=== PATIENT | male | born 1935 | race Caucasian/White ===

== ENCOUNTER 2021-01-12 16:13 | Emergency (ER) | payer OTHER, SELFPAY ==
--- NOTE | 2021-01-12 16:47 | XRR_ITS ---
PROCEDURE INFORMATION: Exam: XR Chest Exam date and time: 01/12/2021 4:47 PM Age: 85 years old Clinical indication: Cough; Additional info: Covid TECHNIQUE: Imaging protocol: XR of the chest. Views: 1 view. Total images: 1 COMPARISON: No relevant prior studies available. FINDINGS: Lungs: No visible active interstitial or alveolar airspace disease. Pleural spaces: Unremarkable. No pleural effusion. No pneumothorax. Heart/Mediastinum: Cardiac structures and configuration with arteriosclerosis. 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 Bones/joints: Mild scoliotic curvature. XR/XR chest 1V portable [id number] IMPRESSION: Nonacute.
[2021-01-12 16:48] VITALS: BMI 23.5
--- NOTE | 2021-01-12 18:51 | ED_ITS ---
HPI - Weakness General: Chief complaint: Weakness Stated complaint: COVID(+)/SENT BY [facility],FATIGUED,GEN MALAISE Time Seen by Provider: 01/12/21 18:47 History of Present Illness: HPI Narrative: Patient comes in from [facility] for concerns of a positive Covid test and feelings of fatigue and general malaise. Patient appears mildly unwell but not toxic. Patient had a positive Covid test through [facility].. Patient reports symptoms for for days. Complaint: generalized weakness Review of Systems General: Reports: 10 or more systems reviewed and unremarkable except in HPI and below Const: Reports: malaise Physical Exam Const: COMMON NORMALS: no acute distress and patient oriented x3 GENERAL APPEARANCE: cooperative HENMT: COMMON NORMALS: normocephalic, TM's normal bilaterally and Normal external nose present HEAD & SCALP: normal to inspection and normocephalic NOSE: Normal external nose present TYMPANIC MEMBRANE: TM's normal bilaterally MOUTH: Normal oral and palatal mucosa present THROAT: posterior oropharynx normal Eye: GENERAL EYE: appearance normal, both eyes and all related structures Neck/C-Spine: COMMON NORMALS: full ROM Lymph: LYMPHATIC: no lymphadenopathy noted Chest: COMMONS NORMALS: normal inspection of the chest Resp: COMMON NORMALS: normal respiratory effort EFFORT & INSPECTION: Yes able to speak in complete sentences Cardio: COMMON NORMALS: regular rate and regular rhythm RATE: regular rate RHYTHM: regular rhythm GI: COMMON NORMALS: non-tender : COMMON NORMALS: Yes no CVA tenderness BLADDER/KIDNEY EXAM: Yes no CVA tenderness Back/Pelvis: COMMON NORMALS: no CVA tenderness and thoracic and lumbar spine normal to inspection Extremity: COMMON NORMALS: normal to inspection Neuro: COMMON NORMALS: patient oriented x3 and moves all extremities Psych: COMMON NORMALS: mental status grossly normal and cooperative Skin: COMMON NORMALS: no rashes or lesions noted GENERAL SKIN EXAM: no rashes or lesions noted MDM - Weakness MDM Narrative: Medical decision making narrative: Patient came in today expecting to get monoclonal antibody treatment due to a positive test through the [facility]. I explained to patient at this time we did not have the ability to infuse through the emergency department due to lack of space. I reviewed the monoclonal antibody with the patient he is agreeable for us to set this up as outpatient infusion therapy. Patient reports minimal symptoms. Patient just reports feeling tired. Chest x-ray done today was normal. Vital signs were normal. I will place an order for case management to assist with monoclonal antibody infusion. Order was written out and a copy to case management file. Prescription was written out and placed for chart. Discharge Plan Discharge Patient Disposition: Home Clinical Impression: COVID-19 Condition: Stable Discharge Orders: Discharge ED (Routine); Ordered 01/12/21 Ordered By: Jhony Jones Referrals: Marizol Mcelroy MD [Primary Care Provider] - Discharge Diet: Usual diet Discharge Activity: Increase activity as tolerated Patient Instructions: Viral Syndrome (ED), Opioid Safety Activity Restrictions/Additional Instructions: Home and rest. Drink plenty of fluids. Use acetaminophen or ibuprofen as needed for aches and pains and fever. It is important to stay well-hydrated. Our case management will contact you in regards for the infusion treatment with the monoclonal antibodies within the next 2 to 3 days. Coding Level of Care Code ED Medical Sales Consultant for Dieudonne Fwsamara Exam Comprehensive
[2021-01-12 20:05] VITALS: BP 130/76; PULSE 80; RESP 18; TEMP 36.8; O2SAT 98
--- NOTE | 2021-01-15 15:21 | DCPLANNER ---
manager air had message to schedule the BAM infusion for patient. manager air faxed order for BAM to centralized scheduling. Centralized scheduling will call patient to set up the infusion.
== END 2021-01-12 20:07 | disposition home or self-care (01) ==
PROVIDERS: Emergency Provider Nurse Practitioner Family; PCP Family Medicine
DX: U07.1 COVID-19 (principal)
CPT/HCPCS: 71045; 99282

== ENCOUNTER 2021-01-17 05:42 | Outpatient (CLI) | payer OTHER, SELFPAY ==
[2021-01-17 06:01] VITALS: BP 154/78; PULSE 68; RESP 16; TEMP 36.9; O2SAT 96
--- NOTE | 2021-01-17 06:59 | AMB.MCA ---
Patient Information [facility] Symptom onset date: 01/10/21 COVID 19 common symptoms: positive fever(s), chills, cough, non-productive cough, fatigue, body aches, nasal congestion and nausea COVID 19 other sytmptoms: negative requiring oxygen Severity: mild Treatment prior to arrival: acetaminophen and ibuprofen OZH COVID test results: No Data to Display outside results available, scanned Criteria/Plan Inclusion/Exclusion Criteria weight >/= 40kg and + direct test </= 10 days ago age >/= 65 not requiring hospitalization, not requiring oxygen (if not chronically on oxygen) and no increase oxygen requirement (if chronically on oxygen) Patient education patient/family/caregiver received/reviewed fact sheet, Emergency Use Authorization/unapproved drug status discussed with patient/family/caregiver, alternatives to this treatment discussed with patient/family/caregiver, risks and benefits of medication reviewed with patient/family/caregiver, patient/family/caregiver given opportunity for questions, which were answered and patient consents to receiving Monoclonal Antibody Treatment Plan for treatment Meets criteria for Monoclonal Antibody infusion Ordering Monoclonal Antibody infusion for today
[2021-01-17 08:00] VITALS: BP 163/79; PULSE 82; O2SAT 97
[2021-01-17 09:25] VITALS: PULSE 60; O2SAT 100
--- NOTE | 2021-01-25 13:27 | DCPLANNER ---
auto parts manager had message that patient received the monoclonal antibody infusion. auto parts manager called patient to check on patient after receiving the infusion. auto parts manager was unable to speak with due to phone number no longer being in service.
== END 2021-01-17 05:43 | disposition home or self-care (01) ==
LOC: ER 05:45
PROVIDERS: PCP Family Medicine; Visit Provider Nurse Practitioner Family
DX: U07.1 COVID-19 (principal)
CPT/HCPCS: 96365

== ENCOUNTER 2022-05-27 09:57 | Emergency (ER) | payer OTHER, SELFPAY ==
[2022-05-27 10:05] VITALS: BP 129/67; PULSE 94; TEMP 36.3; O2SAT 97; BMI 23.5
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
[2022-05-27] MEDS: tetanus-dipt-pertussis 0.5 mL SDV IM (10:53)
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
[2022-05-27 11:31] VITALS: PULSE 85; RESP 17; O2SAT 92
== END 2022-05-27 11:30 | disposition home or self-care (01) ==
PROVIDERS: Emergency Provider Emergency Medicine; PCP Family Medicine
DX: T21.24XA Burn of second degree of lower back, initial encounter (principal); T21.23XA Burn of second degree of upper back, initial encounter; T31.0 Burns involving less than 10% of body surface; X16.XXXA Contact with hot heating appliances, radiators and pipes, initial encounter; Z87.891 Personal history of nicotine dependence; Z23 Encounter for immunization
CPT/HCPCS: 90471; 90715; 99283

== ENCOUNTER → 2022-05-29 14:01 | Outpatient (BNVA) | payer OTHER, SELFPAY | PROVIDERS: PCP Family Medicine; Visit Provider Nurse Practitioner Family | DX: T21.24XD Burn of second degree of lower back, subsequent encounter (principal); X16.XXXD Contact with hot heating appliances, radiators and pipes, subsequent encounter; I96 Gangrene, not elsewhere classified | CPT/HCPCS: 11042; 11045; 99213; A6222 ==

== ENCOUNTER → 2022-06-06 13:19 | Outpatient (BNVA) | payer OTHER, SELFPAY | PROVIDERS: PCP Family Medicine; Visit Provider Nurse Practitioner Family | DX: T21.24XD Burn of second degree of lower back, subsequent encounter (principal); X08.8XXD Exposure to other specified smoke, fire and flames, subsequent encounter; I96 Gangrene, not elsewhere classified | CPT/HCPCS: 99213 ==

== ENCOUNTER → 2022-07-22 08:51 | Outpatient (BNVA) | payer OTHER, SELFPAY | PROVIDERS: PCP Family Medicine; Visit Provider Thoracic Surgery (Cardiothoracic Vascular Surgery) | DX: I96 Gangrene, not elsewhere classified (principal); T21.34XD Burn of third degree of lower back, subsequent encounter; W29.2XXD Contact with other powered household machinery, subsequent encounter | CPT/HCPCS: 97597; 97598; 99213; A6212 ==

== ENCOUNTER → 2022-07-29 11:18 | Outpatient (BNVA) | payer OTHER, SELFPAY | PROVIDERS: PCP Family Medicine; Visit Provider Thoracic Surgery (Cardiothoracic Vascular Surgery) | DX: T21.34XD Burn of third degree of lower back, subsequent encounter (principal); W29.2XXD Contact with other powered household machinery, subsequent encounter | CPT/HCPCS: 97597; A6212 ==